=== PATIENT | male | born 1940 | race Two or more races ===

== ENCOUNTER 2021-07-05 16:57 | Emergency (ER) | payer MEDICARE, OTHER ==
[~2021-07-05] VITALS: Ht 188 cm; Wt 83.9 kg
[2021-07-05] MEDS ORDERED: TAMS-3 PO (17:33)
[2021-07-05 17:40] LABS: *BILIRUBIN,URIN NEGATIVE (NEGATIVE); *BLOOD, URINE 3+ (NEGATIVE); *CLARITY,URINE CLEAR (CLEAR); *COLOR,URINE YELLOW (YELLOW); *KETONES,URINE NEGATIVE (NEGATIVE); *UROBILINOGEN,URINE 0.2 E.U./dl (NORMAL); LEUKOCYTE ESTERASE ,URINE NEGATIVE (NEGATIVE); NITRITE, URINE NEGATIVE (NEGATIVE); UGLUCOSE NEGATIVE (NEGATIVE)
[2021-07-05 17:42] LABS: CREATININE 1.1 mg/dL (0.6-1.3); POTASSIUM 4.1 mmol/L (3.5-5.1)
--- NOTE | 2021-07-05 18:11 | NUR ---
Patient discharged to home in stable condition. Written and verbal after care instructions given. Patient verbalizes understanding of instructions. Stressed follow up or return to ER for worsening s/s.PT WALKS IN STEADY GAIT. PT STATES RELIEVE OF PAIN.
--- NOTE | 2021-07-05 18:11 | NUR ---
LEG BAG PLACED PER ER MD ORDER.
[2021-07-05 18:12] VITALS: BP 131/81
[2021-07-05 20:02] LABS: WBC,URINE 0-3 /HPF (0-3)
== END 2021-07-05 18:15 | disposition home or self-care (01) ==
LOC: ER 17:02
DX: R33.9 Retention of urine, unspecified (principal); Z87.438 Personal history of other diseases of male genital organs
CPT/HCPCS: 36415; 51702; 84153; A4663